=== PATIENT | male | born 1995 | race Caucasian/White ===

== ENCOUNTER 2019-05-29 08:29 | Emergency (ER) | payer OTHER ==
[2019-05-29 08:43] VITALS: BP 150/97
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
== END 2019-05-29 09:20 | disposition home or self-care (01) ==
LOC: ED 08:29
DX: S93.401A Sprain of unspecified ligament of right ankle, initial encounter (principal); V89.2XXA Person injured in unspecified motor-vehicle accident, traffic, initial encounter
CPT/HCPCS: 73610; 73630; 99283